=== PATIENT | male | born 1970 | race Caucasian/White ===

== ENCOUNTER → 2019-10-26 | Day surgery (SDC) | payer OTHER ==
[2019-10-18 09:58] VITALS: BMI 23.8
[2019-10-26 09:57] VITALS: TEMP 97.7
[2019-10-26 11:03] VITALS: BP 114/69; PULSE 74
== END | disposition home or self-care (01) ==
LOC: JASU-ENDO 05:19
PROVIDERS: ATTEND Internal Medicine Gastroenterology
PROC: 0DJD8ZZ Inspection of Lower Intestinal Tract, Via Natural or Artificial Opening Endoscopic (ICD-10-PCS; principal; 2019-10-26 09:30)
DX: Z12.11 Encounter for screening for malignant neoplasm of colon (principal)

== ENCOUNTER 2019-11-21 05:13 | Day surgery (SDC) | payer OTHER ==
[2019-11-16 09:38] VITALS: BMI 23.8
[2019-11-21 09:27] VITALS: TEMP 100
[2019-11-21 09:58] VITALS: BP 106/67; PULSE 74
== END 2019-11-21 10:18 | disposition home or self-care (01) ==
LOC: JASU-ENDO 05:13
PROVIDERS: ATTEND Internal Medicine Gastroenterology
PROC: 0DJD8ZZ Inspection of Lower Intestinal Tract, Via Natural or Artificial Opening Endoscopic (ICD-10-PCS; principal; 2019-11-21 09:00)
DX: Z12.11 Encounter for screening for malignant neoplasm of colon (principal); Z53.8 Procedure and treatment not carried out for other reasons; E11.9 Type 2 diabetes mellitus without complications